=== PATIENT | female | born 1950 | race Caucasian/White ===

== ENCOUNTER 2018-10-30 10:30 | Day surgery (SDC) | payer MEDICARE, OTHER, SELFPAY ==
[2018-10-28 08:26] VITALS: BMI 26.6
[2018-10-30] VITALS (11 sets, daily range): BP systolic 141–161; BP diastolic 88–109; PULSE 68–101; RESP 10–17; TEMP 36.2–37.1; O2SAT 93–100; BMI 24.7
[2018-10-30] MEDS: LACTATED RINGERS 1,000 ML 42 ML IV (11:26)
--- NOTE | 2018-10-30 12:14 | PM.PREOP ---
Pre-operative Note Interval Note History & Physical reviewed/Exam performed by Physician: Yes Changes to H&P: No
[2018-10-30] MEDS: MIDAZOLAM 2 MG/2 ML VIAL IV (12:27)
[2018-10-30] MEDS: fentaNYL 100 MCG/2 ML INJ 50 MCG IV ×3 (12:27→14:20)
--- NOTE | 2018-10-30 12:28 | SUR.PREOP ---
Block start time [1215 ] . Monitoring initiated and maintained throughout procedure. Oxygen and medications given per anesthesiologist instructions. Patient remained stable throughout procedure, no adverse reactions noted. Block end time [1225 ].
[2018-10-30] MEDS: CEFAZOLIN 2 GM/100 ML FROZ.PIGGY IV (12:30)
--- NOTE | 2018-10-30 13:01 | SUR.OPER ---
Lateral on padded OR bed, head on pillow, gel axillary roll in place, bottom leg bent with gel pad under knee to foot, upper leg straight and supported with pillows. Upper arm supported by pillows and secured over bottom arm to padded arm board. Safety belt at hip, tape over blanket lower legs.
--- NOTE | 2018-10-30 14:10 | P.OP_ITS ---
Operative Date/Time/Diagnoses Date of procedure: 10/30/18 Time of procedure: 13:00 Pre-op diagnosis: Left olecranon fracture Post-op diagnosis: same Procedure & Clinicians Procedure: Open reduction internal fixation left olecranon Same procedure as scheduled: Yes Indications: Displaced left olecranon fracture Surgeon: Steve Morgan Click Yes if Unassisted: Yes Anesthesia Type: General and Peripheral nerve block Operative Notes Findings: Displaced olecranon fracture. No signs of any radial head fracture or dislocation. No signs of any articular damage to the distal humerus Closure Type: primary Specimen(s): none sent Applied: implant(s) ([employer] olecranon plate) Estimated Blood Loss (mL): 5 Blood products transfused: none Tourniquet time (min): 52 Procedure in detail: On date of service, patient was met in the holding area where her operative site was signed and witnessed by the OR staff. The surgeries once again discussed with the patient in remaining questions or concerns she had were answered fully. Patient was taken back to the operating theater and placed on the operating table in a supine position. Great care was taken to ensure that all bony prominences were appropriately padded. Time-out was performed verifying patient's name procedure and operative site. Patient was placed in the lateral position axillary roll was placed. Left arm was prepped and draped in normal sterile fashion and an Esmarch was used to exsanguinate the limb tourniquet was turned up to 250 mm of mercury. Posterior incision was made starting just proximal to tip of olecranon going dis tally along the palpable ulnar shaft. Ten blade was used to incise through skin and fascial tissue. Electrocautery was used to achieve hemostasis. Deep knife was then used to sharply dissect on to the olecranon as well as ulnar shaft. This gave us good visualization of the fracture. The insertion the triceps tendon was undisturbed. Curette was used to clean up fracture site and then fracture site was copiously irrigated. Once we removed any interposed tissue we are able to reduce the olecranon. This was held provisionally with a 2 point reduction forceps. C-arm was brought in to verify reduction. Next, olecranon plate was placed and held provisionally with a 2nd 2 point reduction forceps. C-arm was used again to verify reduction as well as plate positioning. Plate was then secured both distally and proximally with a combination of locking nonlocking screws. Two screws were placed at the proximal aspect of plate is going across the olecranon the fracture into the subchondral bone of the coronoid. This provided good compression of fracture. Final x-rays were obtained verifying reduction plate positioning and screw length and positioning. Multiple views were obtained to verify none of the screws were intra-articular. And there was a very anatomic reduction articular surface of the olecranon. The wound was then copiously irrigated. The wound was then closed in layered fashion. Patient's arm was then cleaned, dried, and dressed. Patient was placed into a posterior splint and taken to the PACU in stable condition. Complications: none Condition: stable Disposition: PACU Plan for aftercare: Splint can be removed early next week. At that point patient can engage in range of motion exercises. No lifting more than 2-3 lb for the 1st 6 weeks.
[2018-10-30] MEDS: HYDROCODONE/ACET 5/325 TABLET 1 TAB PO (14:36)
== END 2018-10-30 15:50 | disposition home or self-care (01) ==
PROVIDERS: PCP Family Medicine; Visit Provider Orthopaedic Surgery
PROC: 0RSM04Z Reposition Left Elbow Joint with Internal Fixation Device, Open Approach (ICD-10-PCS; CPT 24685; principal; 2018-10-30 12:15)
DX: S52.022A Displaced fracture of olecranon process without intraarticular extension of left ulna, initial encounter for closed fracture (principal); G89.18 Other acute postprocedural pain; M81.0 Age-related osteoporosis without current pathological fracture; W18.2XXA Fall in (into) shower or empty bathtub, initial encounter
CPT/HCPCS: 24685; 64415; J0690; J1100; J2250; J2405; J2704; J3010

== ENCOUNTER → 2020-03-14 14:06 | Outpatient (CLI) | payer MEDICARE, OTHER, SELFPAY ==
--- NOTE | 2020-03-14 14:14 | DI.MRI.S_ITS ---
PROCEDURE: MR BRAIN (IAC) WWO CON INDICATIONS: VERTIGO OF CENTRAL ORIGIN TECHNIQUE: Noncontrast sagittal T1 spin echo, axial FLAIR, axial gradient echo, axial diffusion and ADC through the brain. Axial thin-slice 3D CISS, coronal TruFISP, axial T1 spin echo with fat saturation through the internal auditory canals. After the administration of contrast, thin slice axial and coronal T1 spin echo with fat saturation through the internal auditory canals, and axial T1 spin echo with fat saturation through the brain. COMPARISON: None. FINDINGS: Image quality: Excellent. No cerebellopontine angle masses. Visualized cranial nerves demonstrate no areas of abnormal signal, enhancement or mass lesion. The ventricular system and cortical sulci demonstrate atrophy, consistent for the patient's stated age. There are areas of increased T2/FLAIR signal intensity within the periventricular and subcortical white matter. There is no acute intra-or extra axial fluid collection. No acute hemorrhage, mass lesion or midline shift. Brainstem is unremarkable. There are no areas of restricted diffusion. Globes are symmetrical. Sinuses are aerated. Osseous structures are intact. IMPRESSION: 1. No acute intracranial process. 2. Mild to moderate atrophy and chronic microvascular ischemic changes. 3. No visualized abnormal signal, mass or enhancement within the cerebellopontine angles or visualized cranial nerves. Dictated by: Heather Carmona M.D. on 03/14/2020 at 16:10 Approved by: Heather Carmona M.D. on 03/14/2020 at 16:15
== END ==
PROVIDERS: PCP Family Medicine; Referring Provider Otolaryngology; Visit Provider Otolaryngology
DX: H81.4 Vertigo of central origin (principal)
CPT/HCPCS: 70553; A9579

== ENCOUNTER 2024-09-14 10:33 | Day surgery (SDC) | payer MEDICARE, SELFPAY ==
[2024-09-09 14:46] VITALS: BMI 25.7
[2024-09-14] VITALS (10 sets, daily range): BP systolic 115–143; BP diastolic 79–94; PULSE 70–97; RESP 10–22; TEMP 36.2–37.2; O2SAT 92–99; BMI 26.1
--- NOTE | 2024-09-14 | PATH_ITS ---
[facility] Accession Number: [id number] No. of containers..01 Tissue . 01 Material submitted: . endometrium - ENDOMETRIAL CONTENTS . 01 Diagnosis: ENDOMETRIUM, BIOPSY: Endometrioid carcinoma, FIGO Grade 1. See comment. MRV 09/22/2024 1230 Local . 01 Comment: Immunohistochemistry is performed with adequate controls to further evaluate the morphology of the specimen. The results are as follows: PAX8: Positive. ER/NM: Positive. P16: Normal pattern. P53: Wild type (normal expression). Napsin A: Negative. WT1: Negative. These results support the above diagnosis. . Immunohistochemistry for mismatch repair protein status is performed with the following results: . MLH1: Intact nuclear expression. PMS2: Intact nuclear expression. MSH2: Intact nuclear expression. MSH6: Intact nuclear expression. . These results were relayed to Johanna at Dr. Albarran's office on 09/22/2024 at 4:20 pm. . As part of routine quality control analyst, this case has also been reviewed by Dr. Buckley, who agrees with the above interpretation. . * This test was developed and the performance characteristics were validated by [employer]. It has not been cleared or approved by the U.S. Food and Drug Administration. . 01 Electronically signed: . Vivienne Calderon DO, Pathologist NPI- [id number] . 01 Gross description: . ENDOMETRIAL CONTENTS: Received in formalin are minute fragments of mucoid and hemorrhagic material measuring 5.0 x 5.0 x 0.3 cm in aggregate. Submitted in toto in 2 cassettes. /DONELL 09/16/2024 1853 Local . 01 Pathologist provided ICD-10: C54.1 . 01 CPT . 898112, [id number], [id number] Specimen Comment: A courtesy copy of this report has been sent to [facility] Pathology Performed at: [address] [facility] [address], [place], [place] [id number] MD Andrea Darnell MD Phone: [phone]
[2024-09-14] MEDS: LACTATED RINGERS 1,000 ML 42 ML IV (11:42)
[2024-09-14] MEDS: FAMOTIDINE 20 MG/2 ML VIAL IV (11:42)
--- NOTE | 2024-09-14 12:22 | PM.PREOP ---
Pre-operative Note Interval Note History & Physical reviewed/Exam performed by Physician: Yes Changes to H&P: No ASA Class (for procedural sedation): II
--- NOTE | 2024-09-14 13:03 | SUR.OPER ---
Lithotomy on padded OR bed, head on pillow, arms secured on padded arm boards at <90 degrees abduction. Legs secured in padded yellow fins stirrups.
--- NOTE | 2024-09-14 13:15 | PM.OP.1 ---
Operative Date/Time/Diagnoses Date of procedure: 09/14/24 Time of procedure: 13:15 Pre-op diagnosis: postmenopausal bleeding, abnormal pelvic US Post-op diagnosis: same Procedure & Clinicians Procedure: hysteroscopy, dilation and curettage Same procedure(s) as scheduled: Yes Indications: postmenopausal bleeding, abnormal pelvic US Surgeon: Linda Albarran Click Yes if Unassisted: Yes Anesthesia Type: General Operative Notes Findings: normal external female genitalia stenotic cervix, atrophic vaginal epithelium limited visualization of endometrium, atypical in appearance Applied: none Estimated Blood Loss (mL): 5 Procedure in detail: Pt was taken to the operating room, transferred to OR table and anesthesia was induced with placement of LMA.? Pt had her legs placed in Sergio stirrups and an exam under anesthesia was performed. The patient was prepped and draped in a sterile fashion.? A time out was performed. ?The bladder was emptied via straight catheter in sterile fashion.? A sterile speculum was inserted into the vagina.? The cervix was visualized and grasped anteriorly using a single tooth tenaculum.? The uterus sounded to 7.5cm and the cervical os was serially dilated using Cochran dilators up to 17f to allow for passage of the hysteroscope.? The 5mm 0 degree hysteroscope was then inserted into the uterus with findings as noted.? The hysteroscope was removed and the uterus was sharply curetted until a gritty texture was noted throughout.? The tenaculum was removed and hemostasis was noted at insertion sites.? The speculum was removed and hemostasis was again noted to be excellent.? The patient then had her legs taken out of stirrups.? The patient tolerated the procedure well and without difficulty.? The patient was awakened from anesthesia and taken to PACU in stable condition. Complications: none Post-operative Condition: stable Disposition: PACU Plan for aftercare: anticipate dc to home pending routine postoperative recovery, outpatient f/u as scheduled
[2024-09-14] MEDS: ACETAMINOPHEN 325 MG TABLET 650 MG PO (13:26)
[2024-09-14] MEDS: KETOROLAC 30 MG/ML VIAL 15 MG IV (13:27)
[2024-09-14] MEDS: OXYCODONE IR 5 MG TABLET PO (13:39)
== END 2024-09-14 14:41 | disposition home or self-care (01) ==
PROVIDERS: PCP Family Medicine; Referring Provider Obstetrics & Gynecology; Visit Provider Obstetrics & Gynecology
PROC: 0UDB8ZZ Extraction of Endometrium, Via Natural or Artificial Opening Endoscopic (ICD-10-PCS; CPT 58558; principal; 2024-09-14 12:15)
DX: C54.1 Malignant neoplasm of endometrium (principal); N95.0 Postmenopausal bleeding; R93.5 Abnormal findings on diagnostic imaging of other abdominal regions, including retroperitoneum; N88.2 Stricture and stenosis of cervix uteri
CPT/HCPCS: 58558; J1885; J2704; J3010